=== PATIENT | female | born 1960 | race African-American/Black ===

== ENCOUNTER → 2023-03-30 09:44 | Outpatient (CLI) | payer MEDICARE, SELFPAY ==
--- NOTE | ~2023-03-30 | MMUS_ITS ---
EXAMINATION: MM diagnostic david BI w dolores, US breast BI limited HISTORY: Palpable abnormality in the upper inner quadrant of the left breast TECHNIQUE: Craniocaudal, mediolateral, and mediolateral oblique 3-D tomosynthesis images of the danaas ts were performed and synthetic 2-D images were generated. CAD analysis was submitted and interpreted . High resolution limited bilateral breast ultrasound was performed. COMPARISON: No prior mammogram is currently available for comparison at this institution. BREAST PARENCHYMAL COMPOSITION: There are scattered areas of fibroglandular density. FINDINGS: MAMMOGRAPHIC FINDINGS: Left breast: There is a 2.0 x 1.9 cm irregular high density mass with microlobulated margins in the m iddle third of the upper inner quadrant of the breast at the 10:00 location, 5 cm from the nipple. Th ere is mild associated architectural distortion. A 1.0 x 0.8 cm mass with similar mammographic featur es is seen slightly anterior and medial to the larger mass 4 cm from the nipple. There is a 0.6 x 0.5 cm mass with similar mammographic features in the anterior/middle third of the upper inner breast at the 10:00 location, 3.5 cm from the nipple. Right breast: There is an 8 mm x 6 mm oval, obscured, equal density mass in the anterior third of the outer breast at the 9:00 location, 3.5 cm from the nipple. ULTRASOUND: Left breast: There is an approximately 2.4 x 2.0 cm irregular, hypoechoic, not parallel mass with pos terior acoustic shadowing and internal vascularity at the 10:00 location, 5 cm from the nipple corres ponding to the palpable abnormality of concern. There is an adjacent 0.8 x 0.7 cm hypoechoic mass. Th ere is a 0.6 x 0.4 cm mass with similar sonographic features at the 11:00 location, 5 cm from the nip ple. Right breast: There is an 8 mm x 5 mm oval, circumscribed, parallel, hypoechoic mass with no posterio r features or internal vascularity at the 9:00 location near the nipple. IMPRESSION: 1. Suspicious masses in the upper outer quadrant of the left breast. Ultrasound-guided biopsy of the largest mass is recommended. 2. Probably benign right breast mass. Comparison with prior exams would be helpful. BI-RADS category 5, highly suggestive of malignancy. Reviewed, dictated and finalized at location A. IMPRESSION: 1. Suspicious masses in the upper outer quadrant of the left breast. Ultrasound -guided biopsy of the largest mass is recommended. 2. Probably benign right breast mass. Comparison with prior exams would be help ful. BI-RADS category 5, highly suggestive of malignancy.
== END ==
PROVIDERS: PCP Emergency Medicine; Visit Provider Emergency Medicine
DX: N63.20 Unspecified lump in the left breast, unspecified quadrant (principal); R92.8 Other abnormal and inconclusive findings on diagnostic imaging of breast
CPT/HCPCS: 76642; 77062; 77066; G0279

== ENCOUNTER 2023-04-13 09:49 | Outpatient (CLI) | payer MEDICARE, SELFPAY ==
--- NOTE | ~2023-04-13 | MMUS_ITS ---
MM post biopsy invasive LT, US breast biopsy LT w image EXAMINATION: US GUIDED NEEDLE BIOPSY WITH VACUUM ASSISTANCE DATE: 04/13/2023 12:00 CDT INDICATION: Cluster of left breast masses. Ultrasound-guided core biopsy is requested to evaluate fo r malignancy. TECHNIQUE AND FINDINGS: The risks and potential benefits of the procedure were discussed with the patient, and written inform ed consent was obtained. After sterile preparation of the left breast, 1% lidocaine was utilized for local anesthesia. 1% lidocaine with epinephrine was used for deep anesthesia. A 10G vacuum-assisted biopsy gun needle was advanced through to the outer edge of the region of inter est from a superior medial approach utilizing sonographic guidance. A total of 5 tissue core samples were obtained through the lesion. An Inrad tissue marker clip was then placed at the biopsy site. H emostasis was achieved. The patient tolerated procedure well and there was no evidence of immediate complication. The patien t was given verbal instructions partly is from the department. Left breast mammograms to document ti ssue marker clip placement. The tissue samples were submitted to surgical pathology for histologic an alysis. IMPRESSION: 1. Successful ultrasound-guided vacuum-assisted biopsy of left breast masses with tissue marker plac ement. Please refer to pathology report for histologic analysis. Reviewed, dictated and finalized at location A. IMPRESSION: 1. Successful ultrasound-guided vacuum-assisted biopsy of left breast masses w ith tissue marker placement. Please refer to pathology report for histologic an alysis.
== END 2023-04-13 09:50 | disposition home or self-care (01) ==
PROVIDERS: PCP Emergency Medicine; Visit Provider Emergency Medicine
DX: N63.21 Unspecified lump in the left breast, upper outer quadrant (principal)
CPT/HCPCS: 19083; 88305; 88342; 88360; A4648

== ENCOUNTER 2023-05-02 16:02 | Outpatient (CLI) | payer MEDICARE, SELFPAY ==
[2023-05-02 16:54] LABS: Basophils Absolute Auto 0.1 K/mm3 (0.0-0.1); Basophils Percent Auto 0.3 % (0.2-1.2); Eosinophils Percent Auto 0.2 % (0-4.4); Hematocrit 40.6 % (37.0-47.0); Hemoglobin 12.5 g/dL (12.0-15.0); Immature Granulocyte Absolute 0.13 K/mm3 (0.00-0.031); Immature Granulocyte Percent A 0.8 % (0-0.5); Lymphocytes Absolute Auto 3.49 K/mm3 (0.9-3.2); Mean Corpuscular HGB Conc 30.8 g/dl (32-36); Mean Corpuscular Hemoglobin 27.2 pg (26-34); Mean Corpuscular Volume 88.5 fl (80-100); Mean Platelet Volume 9.7 fl (7.4-10.4); Monocytes Absolute Auto 0.9 K/mm3 (0.1-0.6); Monocytes Percent Auto 5.5 % (2.6-8.5); Neutrophils Absolute Auto 11.3 K/mm3 (1.3-6.7); Neutrophils Percent Auto 71.2 % (45.5-73.1); Platelet Count Result 332 k/mm3 (150-375); Red Blood Count 4.59 M/mm3 (4.2-5.4); Red Cell Distribution Width 17.4 % (11.5-14.5); White Blood Count 15.8 K/mm3 (4.5-10.0)
[2023-05-02 18:25] LABS: Alanine Aminotransferase 20 U/L (6-35); Albumin Level 4.4 g/dL (3.5-5.1); Alkaline Phosphatase 106 U/L (38-126); Anion Gap 9 mmol/L (8-16); Aspartate Amino Transferase 22 U/L (14-36); Bilirubin,Total 0.5 mg/dL (0.2-1.3); Blood Urea Nitrogen 10 mg/dL (7-17); Calcium 9.7 mg/dL (8.4-10.2); Carbon Dioxide 28 mmol/L (22-30); Chloride 103 mmol/L (98-107); Estimated Glomerular Filt Rate > 60; Glucose 107 mg/dL (65-110); Potassium 4.1 mmol/L (3.4-5.0); Sodium 140 mmol/L (137-145)
[2023-05-07 09:53] LABS: CA 15-3 24 U/mL (<32)
== END 2023-05-02 16:03 | disposition home or self-care (01) ==
LOC: ANHLAB 16:03
PROVIDERS: PCP Emergency Medicine; Visit Provider Internal Medicine Hematology & Oncology
DX: C50.412 Malignant neoplasm of upper-outer quadrant of left female breast (principal); Z17.0 Estrogen receptor positive status [ER+]
CPT/HCPCS: 36415; 80053; 85025; 86300

== ENCOUNTER 2023-05-04 10:09 | Outpatient (CLI) | payer MEDICARE, SELFPAY ==
--- NOTE | ~2023-05-04 | US_ITS ---
EXAMINATION: US_BXSTAXLIMG_US DATE: 05/04/2023 11:45 INDICATION: Left breast cancer with enlarged left axillary lymph node TECHNIQUE: The procedure including the risks and benefits was discussed with the patient. Risks discu ssed included bleeding and infection. The patient understood the risks and agreed to proceed. The sk in overlying the left axilla was prepped and draped in usual sterile fashion. Anesthetic was adminis tered with 1% lidocaine subcutaneously. An 18 gauge core biopsy needle was advanced under continuous ultrasound observation to the lesion of interest. 4 core biopsy specimens were obtained. The needl e was removed and the entry site was cleaned and dressed. Post procedure ultrasound demonstrated no hemorrhage. COMPARISON: Ultrasound dated 05/04/2023 at 10:33 AM FINDINGS: Ultrasound images demonstrate biopsy needle advanced into the previously noted 1.9 x 1.8 x 1.5 cm left axillary lymph node. IMPRESSION: 1. Successful Ultrasound-guided biopsy of 1.9 x 1.8 x 1.5 cm left axillary lymph node. Reviewed, dictated and finalized at location A. MBLY DETAILER IMPRESSION: 1. Successful Ultrasound-guided biopsy of 1.9 x 1.8 x 1.5 cm left axillary lymp h node.
--- NOTE | ~2023-05-04 | US_ITS ---
EXAMINATION: US axilla LT DATE: 05/04/2023 10:52 INDICATION: Left breast cancer with enlarged left axillary lymph node TECHNIQUE: Multiple grayscale and Doppler ultrasound images of the left axilla were obtained. COMPARISON: None FINDINGS/IMPRESSION: Enlarged 1.9 x 1.8 x 1.5 cm left axillary lymph node with nonuniform cortical thickening concerning f or metastatic disease. This lymph node was subsequently biopsied. See separate biopsy report for furt her detail. Reviewed, dictated and finalized at location A. NT ACQUISITION OPERATIONS MANAGER
== END 2023-05-04 10:10 | disposition home or self-care (01) ==
PROVIDERS: PCP Emergency Medicine; Visit Provider Physician Assistant Surgical
DX: C50.912 Malignant neoplasm of unspecified site of left female breast (principal); R59.0 Localized enlarged lymph nodes
CPT/HCPCS: 20999; 76882; 76942; 88305; 88360

== ENCOUNTER 2023-05-05 07:19 | Outpatient (CLI) | payer MEDICARE, SELFPAY ==
--- NOTE | 2023-05-05 | ECHO_ITS ---
Patient Info Name: Brea Hendrickson Age: 62 years : 1960 Gender: Female Ht: 65 in Wt: 171 lbs BSA: 1.91 m2 HR: 77 bpm BP: 121 / 78 mmHg Heart Rhythm: Sinus Rhythm Technical Quality: Good Exam Date: 05/05/2023 7:41 AM Exam Location: Echo Lab Patient Status: Outpatient Admit Date: 05/05/2023 Staff Ordering Physician: Americo Enriquez MD Supervisor Claims: Destiney Emerson RDCS Attending Provider: Americo Enriquez MD Referring Physician: Mina PRESSLEY; Exam Type: CA echo doppler color flow Study Info Indications C50.412 - Malignant neoplasm of upper-outer quadrant of left female breast Complete two-dimensional, color flow and Doppler transthoracic echocardiogram is performed. Summary 1. Complete two-dimensional, color flow and Doppler transthoracic echocardiogram is performed. 2. Left ventricular chamber dimension is normal. 3. Left ventricular systolic function is normal, estimated at 60-65%. 4. Global longitudinal strain is -18 %. 5. Right ventricular systolic function is normal. 6. There appears to be a possible torn chordae on the ventricular aspect of the mitral valve. Cannot rule out vegetation. 7. There is mild mitral valve regurgitation. 8. There is trivial pericardial effusion. Left Ventricle Left ventricular chamber dimension is normal. Left ventricular systolic function is normal, estimated at 60-65%. There is no increased left ventricular wall thickness. Global longitudinal strain is -18 %. Right Ventricle Right ventricular chamber dimension is normal. Right ventricular systolic function is normal. Left Atria Left atrial chamber dimension is normal. Right Atria Right atrial chamber dimension is normal. Atrial Septum Intact interatrial septum visualized by color flow imaging. Aortic Valve The aortic valve is trileaflet. There is no aortic valve stenosis. There is no aortic valve regurgitation. There is mild aortic valve calcification. Pulmonic Valve The pulmonic valve is not well visualized. Mitral Valve There appears to be a possible torn chordae on the ventricular aspect of the mitral valve. Cannot rule out vegetation. There is mild mitral valve regurgitation. Tricuspid Valve There is trace tricuspid valve regurgitation. Pericardium/Pleural There is trivial pericardial effusion. Inferior Vena Cava Normal inferior vena cava with >50% collapse upon inspiration consistent with normal right atrial pressure, 3 mmHg. Aorta The aortic root size at the sinus of Valsalva is normal. Left Ventricular Outflow Tract Name Value Normal LVOT 2D LVOT Diameter 2.0 cm LVOT Doppler LVOT Peak Gradient 4 mmHg LVOT Mean Gradient 2 mmHg LVOT VTI 21 cm LVOT VTI/AV VTI Ratio 0.9 LVOT Stroke Volume 67 ml LVOT CO 4.8 l/min LVOT CI 2.5 l/min/m2 Pulmonic Valve Name Value Normal RVOT Doppler --
== END 2023-05-05 07:20 | disposition home or self-care (01) ==
PROVIDERS: Visit Provider Internal Medicine Hematology & Oncology
DX: C50.412 Malignant neoplasm of upper-outer quadrant of left female breast (principal); Z17.0 Estrogen receptor positive status [ER+]; Z01.818 Encounter for other preprocedural examination; I34.0 Nonrheumatic mitral (valve) insufficiency
CPT/HCPCS: 93306

== ENCOUNTER 2023-05-10 11:56 | Outpatient (CLI) | payer MEDICARE, SELFPAY ==
--- NOTE | ~2023-05-10 | PE_ITS ---
EXAMINATION: PET skull to mid thigh DATE: 05/10/2023 14:38 INDICATION: Malignant neoplasm of upper outer quadrant of left breast. TECHNIQUE: Blood glucose level was 103 mg/dL. 10.362 mCi of 18-fluorodeoxyglucose (18-FDG) was admini stered i.v. Low dose computed tomography (CT) images were acquired from the base of the brain to the proximal thighs for attenuation correction and anatomic localization. Automated exposure control was employed. Dose-length product (DLP) was 930 mGy-cm. Positron emission tomography (PET) images were ac quired in the same distribution. COMPARISON: None FINDINGS: Head/neck: There is a 1.7 cm mass in right parotid gland with maximum SUV of 18.1. There are no patho logically enlarged lymph nodes. Chest: There is mild dependent atelectasis bilaterally. No pleural effusion. The heart size is normal . No pericardial effusion. There are coronary artery calcifications. There is a 4.0 x 4.2 cm mass in medial left breast with maximum SUV of 30.9. There is left subpectoral and left axillary lymphadenopa thy with increased activity. For example, a left axillary node measures 2.2 x 1.5 cm with maximum SUV of 35.1. Abdomen/pelvis/proximal thighs: The liver, gallbladder, spleen, pancreas, adrenal glands, and kidneys are normal. There are no dilated loops of bowel. The appendix is normal. There are no pathologically enlarged lymph nodes. There is no free intraperitoneal fluid. Aortic atherosclerosis is noted. There is no osseous malignancy. IMPRESSION: 1. Left breast mass with increased activity, consistent with primary malignancy. 2. Left subpectoral and left axillary lymphadenopathy with increased activity, consistent with metast atic disease. 3. 1.7 cm right parotid mass with increased activity. The differential diagnosis includes benign mixe d tumor, Warthin tumor, and less likely primary malignancy or chepe metastatic disease. Ultrasound-gu ided fine needle aspiration is recommended. Reviewed, dictated and finalized at location A. ATRICS PHYSICIAN IMPRESSION: 1. Left breast mass with increased activity, consistent with primary malignancy . 2. Left subpectoral and left axillary lymphadenopathy with increased activity, consistent with metastatic disease. 3. 1.7 cm right parotid mass with increased activity. The differential diagnosi s includes benign mixed tumor, Warthin tumor, and less likely primary malignanc y or chepe metastatic disease. Ultrasound-guided fine needle aspiration is tommy mmended.
[2023-05-10 12:38] LABS: Glucose Point of Care 103 mg/dl (65-105)
== END 2023-05-10 11:57 | disposition home or self-care (01) ==
PROVIDERS: PCP Emergency Medicine; Visit Provider Internal Medicine Hematology & Oncology
DX: C50.412 Malignant neoplasm of upper-outer quadrant of left female breast (principal); Z17.0 Estrogen receptor positive status [ER+]
CPT/HCPCS: 78815; A9552

== ENCOUNTER 2023-05-12 02:09 | Day surgery (SDC) | payer MEDICARE, SELFPAY ==
[2023-05-09 09:19] VITALS: BMI 28.4
--- NOTE | 2023-05-09 09:26 | PC.NURSE ---
Report to the Outpatient Waiting Room, entrance under the green pavilion located off [facility], at time 1000 on date 05/12/23. Planned Procedure Time: 1200. Time changes happen often and if your time is changed the preop area will call you the afternoon before. - You and your visitor will be asked to self-screen and do not enter if you have any COVID symptoms. - A mask is optional within the hospital at this time. Patients may have clear liquids (water, carbonated beverages, clear teas, apple juice) until 3 hours prior to surgery with a maximum of 20 ounces. - No food from midnight until time of surgery Take the following medications with a SIP of water the morning of surgery: GABAPENTIN, VENLAFAXINE IF NEEDED, LIDOCAINE PATCH IF NEEDED (DO NOT PLACE ON CHEST) DO NOT STOP ANY OF YOUR OTHER PRESCRIPTION MEDICATIONS PRIOR TO SURGERY ?EXCEPT THE FOLLOWING Medications to discontinue per physician: IBUPROFEN Date to take last dose: PER DR. ROGER Please no make-up, nail hebrew, hairspray, perfume, deodorant, or body powder the day of surgery. No jewelry (including any body piercings) or valuables the day of surgery, leave them at home. Please take a shower or bath the night before, or the morning of, surgery with an antibacterial soap. Wear comfortable, loose fitting clothing. - Jewelry must be removed prior to entering the operating room. Rings and piercings that are not removed may be cut off. - The hospital will not accept responsibility for valuables. - Please leave all valuables, including medications, at home the day of surgery. If you are going home after surgery, a licensed front loader residential driver must drive you home. - NO public transportation without another adult if you receive anesthesia. - We recommend that an adult stay with you for 24 hours following discharge. - We also recommend that you do not drive, make important decision, drink alcoholic beverages, or take any drugs that were not prescribed by your health care provider for at least 24 hours after your discharge time. Follow any additional instructions given to you from your surgeon. If you or anyone in your household have experienced Covid symptoms in the past week, please notify your surgeon or the nurse liaison at the phone number below for possible testing. Telephone instructions given to PT - SANDRA GARIBAY and asked if any additional questions and then verbalized understanding. Patient advised to call surgeon office or pre surgery nurse liaison [phone] if any additional questions.
[2023-05-12] VITALS (9 sets, daily range): BP systolic 117–143; BP diastolic 61–79; PULSE 68–108; RESP 12–18; TEMP 36.5–37.1; O2SAT 91–100
--- NOTE | ~2023-05-12 | XR_ITS ---
XR chest port-a-cath/central DATE: 05/12/2023 14:11 INDICATION: Port-A-Cath insertion TECHNIQUE: Portable AP chest on 05/12/2023 at 1409 hours COMPARISON: None FINDINGS: Right internal jugular Port-A-Cath catheter tip overlies the superior vena cava. Is no evid ence of pneumothorax. Normal heart size. Mild infiltrate or atelectasis is suggested at the lung bases, primarily on the left. No pleural effusion or pulmonary vascular congestion. IMPRESSION: Right internal jugular Port-A-Cath catheter placement with distal tip overlying superior vena cava; no pneumothorax Mild infiltrate or atelectasis at the lung bases, primarily on the left Reviewed, dictated and finalized at Location A. Reviewed, dictated and finalized at location L. MENTATION CONSULTANT IMPRESSION: Right internal jugular Port-A-Cath catheter placement with distal t ip overlying superior vena cava; no pneumothorax Mild infiltrate or atelectasis at the lung bases, primarily on the left
--- NOTE | ~2023-05-12 | XR_ITS ---
EXAMINATION: XR fl guide central line place DATE: 05/12/2023 13:47 INDICATION: Port placement. TECHNIQUE: 2 intraoperative fluoroscopic views of the chest were obtained. I was not present. Fluoros copy exposure time was 21 seconds. COMPARISON: Chest 2 view 05/12/2023 FINDINGS: There is a right internal jugular port with tip in superior vena cava. IMPRESSION: 1. Port tip in superior vena cava. Reviewed, dictated and finalized at location A. T COUNTER ATTENDANT
--- NOTE | 2023-05-12 11:05 | WPDHPUPDATE1 ---
History and Physical Update Update Date/Time: 05/12/23 11:05 History and Physical has been reviewed, including an updated exam of the patient. There are NO changes in the patient's condition. Risks, benefits, and alternatives have been discussed and questions answered. Patient agrees to proceed with procedure.
[2023-05-12] MEDS: LACTATED RINGERS 1,000 ML 30 ML IV CONT ×2 (11:10→13:46)
[2023-05-12 11:33] LABS: INR 0.9; Prothrombin Time 12.6 Seconds (11.1-14.7)
--- NOTE | 2023-05-12 12:39 | WPDANESEPPF ---
Anes - Initial Pre Proc Eval Procedure: Operation Date: 05/12/23 12:00 Proposed Procedures p Insertion Mitchel Cath - Janeen Kenyon MD Date/Time: 05/12/23 12:39 Surgeon: Janeen Kenyon MD Pre Op Diagnosis: axillary lymphadenopathy Patient Data Age: 62 Gender: F Height: 1.65 m Weight: 78.3 kg Last Vital Signs Temp 98.7 F 05/12/23 11:20 Pulse 84 05/12/23 11:20 Resp 16 05/12/23 11:20 BP 135/74 05/12/23 11:20 Pulse Ox 100 05/12/23 11:20 O2 Del Method Room Air 05/12/23 11:20 Allergies Allergy/AdvReac Type Severity Reaction Status Date / Time No Known Allergies Allergy Unverified 05/12/23 10:28 Home Medications Medication Instructions Recorded Confirmed Type gabapentin 300 mg capsule 300 mg PO TID 04/25/23 05/12/23 History ibuprofen 800 mg tablet 800 mg PO Q6H 04/25/23 05/12/23 History lidocaine 5 % topical patch 3 patch topical DAILY 04/25/23 05/09/23 History meclizine 12.5 mg tablet 12.5 mg PO TID PRN Vertigo 04/25/23 05/09/23 History olanzapine 5 mg tablet 5 mg PO DAILY 04/25/23 05/12/23 History tizanidine 4 mg capsule 4 mg PO QHS PRN Sleep 04/25/23 05/12/23 History venlafaxine 75 mg tablet 75 mg PO BID PRN Anxiety 04/25/23 05/12/23 History mupirocin 2 % topical ointment 1 applic topical BID 05/03/23 05/12/23 History tramadol 50 mg tablet 50 mg PO Q6H PRN pain #12 tabs 05/12/23 Rx Laboratory Tests 05/12/23 10:52 PT 12.6 Seconds (11.1-14.7) INR 0.9 APTT 28.0 SECONDS (22.3-36.8) Patient hx anesthesia problems: none Family hx anesthesia problems: none Results Review: All pre-operative results and documents have been reviewed as part of the pre-operative evaluation. [facility] Family History Family History (Updated 04/25/23 @ 13:30 by Yesenia Lilly CMA) Father Heart disease Sibling Diabetes mellitus Social History Social History (Updated 04/25/23 @ 13:11 by Yesenia Lilly CMA) Years smoked: 40 Smoking status: Current every day smoker Tobacco type: cigarettes Alcohol intake: never Substance use: never Substance use type: does not use Lack of Transportation: No Lack of Food: Sometimes True Current Housing: I Have Housing Concerned About Future Housing: No Difficulty Paying Gas/Electric Bills: No Difficulty Paying for Meds: No Currently Unemployed: No Education: Trade/Vocational Certificate Difficulty w/ Childcare or Family Care: No Living arrangements: alone Spiritual care concerns: No Anes - Eval Final PreProcedure Day of Procedure 05/12/23 12:39 Patient weight: normal Heart: regular rate and rhythm Lungs: clear to auscultation Neurological: alert and oriented Last oral intake: >/= 8 hours Emergent: no Anesthetic plan: proceed Results Review: All pre-operative results and documents have been reviewed as part of the pre-operative evaluation. Informed Consent: The patient's anesthetic plan and its attendant risks and benefits were discussed with the patient/family/POA. Questions were solicited and answers provided to the satisfaction of the patient/family/POA.
[2023-05-12] MEDS: ceFAZolin 2 GM/D5W 50 ML 2 GM/50 ML BAG IVPB (12:46)
[2023-05-12] MEDS: BUPIVACAINE/EPINEPHRINE 0.5% 50 ML VIAL 9 ML INFILTRATE (13:12)
--- NOTE | 2023-05-12 13:23 | SUR.OPER ---
ultrasound used for placement per surgeon/no images to send to radiology as per surgeon.
--- NOTE | 2023-05-12 13:35 | W.PM.PROC2 ---
Procedure Note - Detailed Date of Procedure 05/12/23 Pre-op Diagnosis Localized advanced left breast cancer Post-op Diagnosis Same Procedure Performed Right internal jugular vein mediport placement Surgeon Janeen Kenyon MD Automotive Sales Representative Dior Lange PA-C Anesthesia General Description of Procedure Patient was identified in the preoperative holding area brought to the operating room suite.?She was laid supine in the OR table and sequential compression devices were applied.? General anesthesia was induced without difficulty.? The right neck and upper chest was prepped and draped in a sterile fashion.? Ultrasound was used to identify the internal jugular vein and a small incision was made overlying this area.? Local anesthetic was infiltrated in the subcutaneous tissue and a needle was then slowly advanced under ultrasound guidance into the lumen of the internal jugular vein.? Once dark venous blood was aspirated the syringe was removed and a guidewire was introduced into the internal jugular vein.? Fluoroscopy images were obtained to verify the position of the wire going down into the superior vena cava.? Once this was confirmed a small pocket was made by making a small incision with a 15 blade in the right upper chest area.? Dissection was carried down through the subcutaneous tissue and a small pocket was created for the future port.? Hemostasis was assured.? I then proceed to tunnel the catheter from this pocket to the neck after injecting local anesthetic in the subcutaneous tissue of the neck.? Fluoroscopy images were obtained to measure the length of the catheter with the tip at the cavoatrial junction.? The catheter was then cut distally at approximately 25 cm and connected to port.? The port was then flushed with saline.? An introducer with the peel-away sheath was then introduced into internal jugular vein under fluoroscopy guidance using the previously placed wire.? The wire was removed as well as the introducer leaving the peel-away sheath.? The catheter was then introduced into the IJ via the peel-away sheath which was slowly removed.? Once the catheter was in good position, I was able to aspirate dark venous blood and easily flushed the port using the shore needle.? A x-ray picture was taking to ensure there is no kinks throughout the catheter and the catheter tip was in good position at the superior aspect of the cavoatrial junction.? Once this was performed the port was then secured to pectoralis fascia using interrupted silk sutures and placed into the subcutaneous pocket.? The port was again aspirated and flushed with heparinized saline.? The deep dermal layer was closed with interrupted Vicryl and the skin was closed with 4-0 Monocryl in a subcuticular fashion.? The small incision in the neck was closed with a single interrupted Monocryl suture.? Dermabond was applied to all the incisions. Patient was awoken from anesthesia and taken to the recovery area in stable condition. All needles, instruments and sponge counts were correct as reported by the operating room staff. Patient tolerated the procedure well with no immediate complications. Dior Lange PA-C was presented and assisted with patient retraction and positioning throughout the case. Estimated Blood Loss 10 Drains No Complications No immediate complications Condition Stable Disposition PACU [facility] Billing Surgery - Charge Forward: Surgery Billing
[2023-05-12] MEDS: fentaNYL CITRATE INJ (*CRX) 100 MCG/2 ML VIAL 25 MCG IV PUSH ×2 (14:17→14:20)
[2023-05-12] MEDS: oxyCODONE HCL (*CRX) 5 MG TAB IR PO (15:14)
== END 2023-05-12 16:18 | disposition home or self-care (01) ==
PROVIDERS: PCP Emergency Medicine; Visit Provider Surgery
PROC: (CPT 36561; principal; 2023-05-12 12:00)
DX: C50.912 Malignant neoplasm of unspecified site of left female breast (principal); R59.0 Localized enlarged lymph nodes; F17.210 Nicotine dependence, cigarettes, uncomplicated; Z17.0 Estrogen receptor positive status [ER+]; Z85.42 Personal history of malignant neoplasm of other parts of uterus
CPT/HCPCS: 36561; 36415; 77001; 85610; 85730; 93306; A9270; C1788; J0690; J1644; J2250; J2371; J2405; J2704; J3010; J7030; J7120

== ENCOUNTER 2023-06-02 09:37 | Outpatient (CLI) | payer MEDICARE, MEDICAID, SELFPAY ==
--- NOTE | ~2023-06-02 | US_ITS ---
EXAMINATION: US FNA w image guidance DATE: 06/02/2023 12:03 INDICATION: Right parotid mass TECHNIQUE: A time-out was performed to verify the patient's name, date of , and procedure to be performed . The procedure and its benefits and risks were discussed with the patient. Risks specifically discus sed included bleeding, nerve injury and infection. The patient understood the risks and agreed to pro ceed. The right face overlying the right parotid gland was prepped and draped in the usual sterile ma nner. 3 mL 1% lidocaine was used for local anesthesia. 6 passes were made with a 25G needle into th e lesion. Appropriate needle location was documented with continuous sonographic guidance. Specimens were deemed adequate by the pathologist. A sterile bandage was applied. There were no immediate com plications. FINDINGS: Grayscale ultrasound images demonstrate biopsy needles advanced into a 2.0 x 1.3 x 1.2 cm solid hypoe choic right parotid mass. IMPRESSION: 1. Successful ultrasound-guided fine needle aspiration of a 2.0 cm right parotid mass. Reviewed, dictated and finalized at location A. S BREAKER IMPRESSION: 1. Successful ultrasound-guided fine needle aspiration of a 2.0 cm right parot id mass.
== END 2023-06-02 09:38 | disposition home or self-care (01) ==
PROVIDERS: PCP Emergency Medicine; Visit Provider Internal Medicine Hematology & Oncology
DX: K11.8 Other diseases of salivary glands (principal)
CPT/HCPCS: 10005; 88108; 88172; 88305